=== PATIENT | male | born 1955 | race African-American/Black ===

== ENCOUNTER 2019-07-31 06:00 | Outpatient (RCR) | payer OTHER, SELFPAY | END 2019-08-30 00:01 | LOC: MPT 06:00 | PROVIDERS: Family Provider Emergency Medicine Emergency Medical Services; Visit Provider Specialist | DX: Z47.1 Aftercare following joint replacement surgery (principal); Z96.651 Presence of right artificial knee joint | CPT/HCPCS: 97110 ×2; G0283 ×2 ==

== ENCOUNTER 2019-09-13 20:00 | Outpatient (CLI) | payer MEDICARE, SELFPAY | END 2019-09-13 20:01 | disposition home or self-care (01) | LOC: SLEEP 09-14 10:01 | PROVIDERS: Family Provider Emergency Medicine Emergency Medical Services; PCP Emergency Medicine Emergency Medical Services; Visit Provider Registered Nurse | DX: G47.33 Obstructive sleep apnea (adult) (pediatric) (principal) | CPT/HCPCS: 95810; 95811 ==

== ENCOUNTER → 2019-09-30 10:50 | Outpatient (BNVA) | payer OTHER, SELFPAY | PROVIDERS: Family Provider Emergency Medicine Emergency Medical Services; PCP Emergency Medicine Emergency Medical Services; Visit Provider Anesthesiology | DX: M54.5 Low back pain (principal); Z79.891 Long term (current) use of opiate analgesic | CPT/HCPCS: 99213; 99214 ==

== ENCOUNTER → 2019-10-11 15:49 | Outpatient (BNVA) | payer OTHER, SELFPAY | PROVIDERS: Family Provider Emergency Medicine Emergency Medical Services; PCP Emergency Medicine Emergency Medical Services; Visit Provider Urology | DX: N40.0 Benign prostatic hyperplasia without lower urinary tract symptoms (principal); R33.9 Retention of urine, unspecified | CPT/HCPCS: 81001; 84153 ==

== ENCOUNTER → 2019-10-26 08:16 | Outpatient (BNVA) | payer OTHER, SELFPAY | PROVIDERS: Family Provider Emergency Medicine Emergency Medical Services; PCP Emergency Medicine Emergency Medical Services; Visit Provider Anesthesiology | DX: G89.29 Other chronic pain (principal); M54.41 Lumbago with sciatica, right side; M47.816 Spondylosis without myelopathy or radiculopathy, lumbar region; Z79.891 Long term (current) use of opiate analgesic | CPT/HCPCS: 99213; 99214 ==

== ENCOUNTER → 2019-11-08 12:17 | Outpatient (BNVA) | payer OTHER, SELFPAY | PROVIDERS: Family Provider Emergency Medicine Emergency Medical Services; PCP Emergency Medicine Emergency Medical Services; Visit Provider Anesthesiology Pain Medicine | DX: G89.29 Other chronic pain (principal); M47.816 Spondylosis without myelopathy or radiculopathy, lumbar region | CPT/HCPCS: 64493; 64494; 64495; 64520; J2001; J3490 ==

== ENCOUNTER 2019-11-15 10:58 | Emergency (ER) | payer OTHER, SELFPAY ==
[2019-11-15 10:59] VITALS: BMI 26.2
--- NOTE | 2019-11-15 11:03 | ED_ITS ---
Entered by Nupur Michel, acting as scribe for Sage Martinez MD, [facility] [place] HPI - Psych General: Chief Complaint: Psychiatric Symptoms Stated Complaint: SI, ABD PAIN Time Seen by Provider: 11/15/19 11:00 Source: patient Mode of arrival: ambulatory Limitations: no limitations History of Present Illness: HPI Narrative: 64 yo Male presents to ED with complaint of suicidal ideation and depression. Pt states that for the last 2 weeks he has been feeling down and out and depressed. Pt states that he has a history of depression and takes medication for it. Pt denies any recent life stressors or anything that might have started this episode. Pt states he has considered suicide and planned to put one in the head . Pt states that he hasn't been able to eat for 2 weeks because he has not appetite. Pt states that he doesn't have any homicidal ideation. Pt states that he has a history of drug use but hasn't used anything in about 5 years. Pt states he has also been having abdominal pains. MD complaint: suicidal ideation and feels depressed Onset (ago): week(s) (2) Duration: constant History of same: Yes Relieving factors: none Exacerbating factors: none Associated psychiatric symptoms: depression and suicidal ideation Associated symptoms: Reports depression and suicidal ideation; Deny homicidal ideation Treatments prior to arrival: none If self harm: admits thoughts of self harm and has plan Review of Systems General: Reports: 10 or more systems reviewed and unremarkable except in HPI and below Const: Denies: fever, chills or body aches Eyes: Denies: change in vision or blurry vision ENMT: Denies: throat pain, enlarged tonsils, painful swallowing, hoarseness, mouth pain or swelling of lips/tongue Card: Denies: chest pain, palpitations, irregular heart rhythm, edema or swelling of feet/ankles Resp: Denies: shortness of breath, productive cough or non-productive cough GI: Reports: abdominal pain; Denies: nausea or vomiting : Denies: flank pain, painful urination, urinary frequency, urinary urgency or urinary hesitancy Musc: Denies: neck pain, back pain or extremity swelling Skin/Breast: Denies: rash, itching or redness Neuro: Denies: headache, numbness in extremities or weakness in extremities Psych: Reports: depression and suicidal ideation; Denies: homicidal ideation Endo: Denies: excessive urination, excessive thirst or tired all the time PFSH ED PFSH: Medical History Chronic bilateral low back pain with right-sided sciatica Encounter for long-term opiate analgesic use Generalized anxiety disorder Lumbar spondylosis Major depressive disorder, recurrent severe without psychotic features OSBALDO (obstructive sleep apnea) Post-traumatic stress disorder, chronic Urinary retention Surgical History Hx of eye surgery hole in retina S/P total knee arthroplasty RIGHT Family History Mother , at age 88 No problems noted. Father , at age 97 lung cancer No problems noted. Other Cancer Diabetes Hypertension Social History (Updated 10/26/19 @ 08:56 by Barbara Guallpa LPN) Smoking and tobacco status: never smoked Second hand smoke exposure: No Alcohol intake: never Marital status: Current occupational status: employed History of recent travel: No Physical Exam Const: COMMON NORMALS: no apparent distress, average body habitus, oriented x3, no limitations, healthy appearing, alert and well nourished HENMT: COMMON NORMALS: normocephalic, head/scalp atraumatic and moist oral mucous membranes HEAD & SCALP: normocephalic and atraumatic Eye: COMMON NORMALS: PERRL, EOMs intact bilaterally, conjunctivae normal and no scleral icterus CONJUNCTIVA: Yes conjunctivae normal PUPIL: Yes PERRL Neck/C-Spine: COMMON NORMALS: full ROM, supple, no meningeal signs, no JVD and no carotid bruits Chest: COMMONS NORMALS: inspection of chest normal and palpation of chest normal Resp: COMMON NORMALS: normal respiratory effort, no retractions, no use of accessory muscles, clear to auscultation bilaterally and percussion normal AUSCULTATION: clear to auscultation bilaterally PERCUSSION: percussion normal Cardio: COMMON NORMALS: no JVD, regular rate, regular rhythm, S1 normal heart sound, S2 normal heart sound, no gallops, no clicks, no murmurs, no rub and peripheral pulses 2+ throughout RATE: regular rate RHYTHM: regular rhythm HEART SOUNDS: S1 normal and S2 normal PERIPHERAL PULSES: pulses 2+ throughout GI: COMMON NORMALS: normal to inspection, nondistended, normoactive bowel sounds, soft to palpation, non-tender, no hepatosplenomegaly, no masses and no bruits PALPATION: Yes soft and Yes no hepatosplenomegaly : COMMON NORMALS: Yes no CVA tenderness BLADDER/KIDNEY EXAM: Yes no CVA tenderness Back/Pelvis: COMMON NORMALS: no CVA tenderness Extremity: COMMON NORMALS: normal to inspection, full ROM, normal capillary refill, no calf tenderness and no pedal edema Neuro: COMMON NORMALS: oriented x3 SENSORIUM/ORIENTATION: Yes alert MENINGEAL SIGNS: Yes no meningeal signs Skin: COMMON NORMALS: no rashes or lesions noted, no wounds, skin turgor normal, no jaundice, no petechiae and no mottling GENERAL SKIN EXAM: no rashes or lesions noted and turgor normal MDM - Psych MDM Narrative: Medical decision making narrative: 64-year-old gentleman who is a and presents to the emergency department with suicidal ideation. The patient was medically cleared, however 3 in the hospital declined the patient. The patient was however accepted at [facility] in [place] and he is being transferred to the facility for further evaluation and management. Medical Records: Attestation: I reviewed the patient's medical records. Lab Data: Attestation: I reviewed the patient's lab results. Labs: Lab Results 11/15/19 11/15/19 11/15/19 Range/Units 11:08 11:08 11:24 WBC 5.1 (4.0-10.0) 10^3/ uL RBC 4.82 (4.1-5.3) 10^6/u L Hgb 12.9 (11.7-16.6) g/dL Hct 40.9 L (42.0-52.0) % MCV 84.9 (80-94) fL MCH 26.8 L (28.0-34.0) pg MCHC 31.5 (30.0-36.0) g/dL RDW 12.9 (12.1-15.1) % Plt Count 362 (130-400) 10^3/c mm MPV 10.4 (7.4-10.4) fL Neut % (Auto) 60.8 % Lymph % (Auto) 31.1 % [place] % (Auto) 6.9 % Eos % (Auto) 0.6 % Baso % (Auto) 0.4 % Neut # (Auto) 3.1 (1.8-7.7) 10^3/u L Lymph # (Auto) 1.6 (0.8-4.8) 10^3/u L [place] # (Auto) 0.4 (0.2-0.9) 10^3/u L Eos # (Auto) 0.0 (0.0-0.8) 10^3/u L Baso # (Auto) 0.0 (0.0-0.1) 10^3/u L Nucleated RBC % (a uto) 0 % Nucleated RBCs # 0.0 /100WBC Sodium (136-145) mmol/L Potassium (3.5-5.1) mmol/L Chloride (98-107) mmol/L Carbon Dioxide (22-29) mmol/L Anion Gap (5-19) BUN (8-23) mg/dL Creatinine (0.7-1.2) mg/dL GFR Calculation (90-130) mL/min Glucose (65-115) mg/dL Calculated Osmolal ity (285-295) mOsm/k g Calcium (8.5-10.5) mg/dL Total Bilirubin (0.15-1.2) mg/dL AST (0-40) U/L ALT (0-41) U/L Alkaline Phosphata se (40-130) IU/L Total Protein (6.6-8.7) g/dL Albumin (3.5-5.2) g/dL Globulin (1.3-4.6) g/dL TSH (0.27-4.20) uIU/ mL Urine Color Yellow (Yellow) Urine Appearance Clear (CLEAR) Urine pH 5 (5-7) Ur Specific Gravit y 1.015 (1.005-1.030) Urine Protein Neg (Negative) Urine Glucose (UA) Norm (Normal) Urine Ketones Negative (Negative) Urine Blood Neg (Negative) Urine Nitrate Negative (Negative) Urine Bilirubin Neg (NEGATIVE) Urine Urobilinogen Norm (Negative) mg/dL Ur Leukocyte Jacklyn ase Negative (Negative) Salicylates (3-10) mg/dL Urine Opiates Scre en Negative (Negative) ng/mL Acetaminophen (10-30) ug/mL Ur Barbiturates Sc reen Negative (Negative) ng/mL Ur Phencyclidine S crn Negative (Negative) ng/mL Ur Amphetamines Sc reen Negative (Negative) ng/mL U Benzodiazepines Scrn Negative (Negative) ng/mL Urine Cocaine Scre en Negative (Negative) ng/mL U Marijuana (THC) Screen Negative (Negative) ng/mL Ethyl Alcohol (0-10) mg/dL 11/15/19 Range/Units 11:24 WBC (4.0-10.0) 10^3/ uL RBC (4.1-5.3) 10^6/u L Hgb (11.7-16.6) g/dL Hct (42.0-52.0) % MCV (80-94) fL MCH (28.0-34.0) pg MCHC (30.0-36.0) g/dL RDW (12.1-15.1) % Plt Count (130-400) 10^3/c mm MPV (7.4-10.4) fL Neut % (Auto) % Lymph % (Auto) % [place] % (Auto) % Eos % (Auto) % Baso % (Auto) % Neut # (Auto) (1.8-7.7) 10^3/u L Lymph # (Auto) (0.8-4.8) 10^3/u L [place] # (Auto) (0.2-0.9) 10^3/u L Eos # (Auto) (0.0-0.8) 10^3/u L Baso # (Auto) (0.0-0.1) 10^3/u L Nucleated RBC % (a uto) % Nucleated RBCs # /100WBC Sodium 140 (136-145) mmol/L Potassium 3.4 L (3.5-5.1) mmol/L Chloride 101 (98-107) mmol/L Carbon Dioxide 29 (22-29) mmol/L Anion Gap 13.4 (5-19) BUN 17 (8-23) mg/dL Creatinine 1.2 (0.7-1.2) mg/dL GFR Calculation 60.6 L (90-130) mL/min Glucose 107 (65-115) mg/dL Calculated Osmolal ity 287 (285-295) mOsm/k g Calcium 10.2 (8.5-10.5) mg/dL Total Bilirubin 0.3 (0.15-1.2) mg/dL AST 24 (0-40) U/L ALT 19 (0-41) U/L Alkaline Phosphata se 66 (40-130) IU/L Total Protein 8.2 (6.6-8.7) g/dL Albumin 4.5 (3.5-5.2) g/dL Globulin 3.7 (1.3-4.6) g/dL TSH 1.01 (0.27-4.20) uIU/ mL Urine Color (Yellow) Urine Appearance (CLEAR) Urine pH (5-7) Ur Specific Gravit y (1.005-1.030) Urine Protein (Negative) Urine Glucose (UA) (Normal) Urine Ketones (Negative) Urine Blood (Negative) Urine Nitrate (Negative) Urine Bilirubin (NEGATIVE) Urine Urobilinogen (Negative) mg/dL Ur Leukocyte Jacklyn ase (Negative) Salicylates < 0.3 L (3-10) mg/dL Urine Opiates Scre en (Negative) ng/mL Acetaminophen < 5.0 L (10-30) ug/mL Ur Barbiturates Sc reen (Negative) ng/mL Ur Phencyclidine S crn (Negative) ng/mL Ur Amphetamines Sc reen (Negative) ng/mL U Benzodiazepines Scrn (Negative) ng/mL Urine Cocaine Scre en (Negative) ng/mL U Marijuana (THC) Screen (Negative) ng/mL Ethyl Alcohol < 10 (0-10) mg/dL Imaging Data^: CT Abd/Pel: Radiologist's impression: [place] [address] CT Scan Report Signed Patient: Brant Segundo #: [id number] : 4Acct#:[id number] Age/Sex: 64 / MADM Date: 11/15/19 Loc: ERRoom/Bed: Attending Dr: Ordering Provider/Ordering MD: Sage Martinez MD, [facility] [place] Date of Service: 11/15/19 Procedure(s): CT abdomen pelvis w con* [id number] Accession Number(s): [id number] Report Number: [id number] WS: [id number] CT scan of the abdomen and pelvis with IV contrast. Additional two-dimensional coronal and sagittal reconstruction was performed. 11/15/2019 Clinical Data: abdominal pain, nausea Comparison: CT abdomen and pelvis, 11/16/2018. DLP: 1029.[address] scans at [facility] use at least one of these dose optimization techniques: automated exposure control; mA and/or kV adjustment per patient size (includes targeted exams where dose is matched to clinical indication); or iterative reconstruction. Findings: The lower lungs show no nodules, masses or effusions. The liver, gallbladder, spleen, adrenal glands and pancreas are normal. The kidneys show equal bilateral contrast excretion with bilateral simple cysts, the largest of which on the right is 2.3 cm. No renal mass, hydronephrosis or calculi are seen. The abdominal aorta is normal in size with minimal calcification in the wall. No appendicitis or diverticulitis is seen. The stomach, small bowel and colon show no abnormalities. The bladder is unremarkable. The prostate is enlarged. No inguinal hernia is seen. The lumbar spine shows a levoscoliosis with degenerative disc disease at L2-L3. CT/CT abdomen pelvis w con* [id number] Impression: 1. Negative for acute intra-abdominal or pelvic abnormalities. 2. Bilateral renal cysts. Dictated By:Radha Guerrero MD Signed By:Radha Guerrero MDSigned Date/Time:11/15/19 1312 DD/ 1246 CXR: Radiologist's impression: [address] [address] XRay Report Signed Patient: Brant Segundo #: [id number] : 4Acct#:[id number] Age/Sex: 64 / MADM Date: 11/15/19 Loc: ERRoom/Bed: Attending Dr: Ordering Provider/Ordering MD: Sage Martinez MD, [facility] [place] Date of Service: 11/15/19 Procedure(s): XR chest 2V* 84799 Accession Number(s): [id number] Report Number: [id number] WS: [id number] XR chest 2V* 22001 REASON FOR EXAM: medical clearance FINDINGS: Hyper aerated lungs with decreased vascularity in flattenings of the hemidiaphragms. The heart was small. There is no pneumonia, pleural effusion, pulmonary edema. The hilum and apices normal. No osseous abnormalities. XR/XR chest 2V* 40168 IMPRESSION: Chronic obstructive pulmonary disease. Dictated By:Brian Nogueira DO Signed By:Brian Nogueira DOSigned Date/Time:11/15/19 1628 DD/ 1628 EKG Data^: EKG 1: Computer generated interpretation: [address] [address] Electrocardiograph Report Signed Patient: Brant Segundo #: [id number] : 1955cct#:[id number] Age/Sex: 64 / MADM Date: 11/15/19 Loc: [facility] [place]/Bed: Attending Dr: Ordering Provider/Ordering MD: Sage Martinez MD, [facility] [place] Date of Service: 11/15/19 Procedure(s): ECG 12 lead EKG Accession Number(s): [id number] Report Number: [id number] Measurements Intervals [place] Rate: 55 P: 61 [place]: 150 QRS: 71 QRSD: 100 T: 67 QT: 437 QTc: 421 SINUS BRADYCARDIA Compared to ECG 01/05/2019 09:19:08 Sinus rhythm no longer present Left ventricular hypertrophy no longer present Electronically Signed On 11-15-2019 12:44:18 CDT by Unique Nelson M.D. [id number] [id number] Dictated By:Unique Nelson MD Signed By:Unique Nelson MDSigned Date/Time:11/15/19 1245 DD/ 1204 Discharge Plan Discharge Patient Disposition: Xfer Psychiatric Hosp Clinical Impression: Suicidal ideation Condition: Stable Discharge Orders: Transfer Out of Facility (Order); Ordered 11/15/19 Ordered By: Sage Martinez Referrals: Gideon Bae DO [Primary Care Provider] - Coding Level of Care Code ED Circle Saw Operator for Chg Fwd Exam Comprehensive The documentation recorded by the Marilu palomino Carmen, accurately reflects the service I personally performed and the decisions made by me, Sage Martinez MD, [facility] [facility] Nov 15, 2019 10:58
[2019-11-15 11:04] VITALS: BP 149/83; PULSE 63; RESP 16; TEMP 36.6; O2SAT 95
--- NOTE | 2019-11-15 11:27 | CT_ITS ---
WS: [id number] CT scan of the abdomen and pelvis with IV contrast. Additional two-dimensional coronal and sagittal r econstruction was performed. 11/15/2019 Clinical Data: abdominal pain, nausea Comparison: CT abdomen and pelvis, 11/16/2018. DLP: 1029.[address] scans at [facility] use at least one of these dose optimization techniques: automat ed exposure control; mA and/or kV adjustment per patient size (includes targeted exams where dose is matched to clinical indication); or iterative reconstruction. Findings: The lower lungs show no nodules, masses or effusions. The liver, gallbladder, spleen, adrenal glands and pancreas are normal. The kidneys show equal bilateral contrast excretion with bilateral simple cysts, the largest of which on the right is 2.3 cm. No renal mass, hydronephrosis or calculi are seen. The abdominal aorta is no rmal in size with minimal calcification in the wall. No appendicitis or diverticulitis is seen. The stomach, small bowel and colon show no abnormalities. The bladder is unremarkable. The prostate is enlarged. No inguinal hernia is seen. The lumbar spine shows a levoscoliosis with degenerative disc disease at L2-L3. CT/CT abdomen pelvis w con* [id number] Impression: 1. Negative for acute intra-abdominal or pelvic abnormalities. 2. Bilateral renal cysts.
--- NOTE | 2019-11-15 11:27 | ECG_ITS ---
Measurements Intervals [place] Rate: 55 P: 61 [place]: 150 QRS: 71 QRSD: 100 T: 67 QT: 437 QTc: 421 SINUS BRADYCARDIA Compared to ECG 01/05/2019 09:19:08 Sinus rhythm no longer present Left ventricular hypertrophy no longer present Electronically Signed On 11-15-2019 12:44:18 CDT by Unique Nelson M.D. [id number]
[2019-11-15 11:36] LABS: Add Urine Microscopic? NO
[2019-11-15 11:46] LABS: Basophils % 0.4 %; Eosinophils % 0.6 %; Hematocrit 40.9 % (42.0-52.0); Hemoglobin 12.9 g/dL (11.7-16.6); Lymphocytes # 1.6 10^3/uL (0.8-4.8); Lymphocytes % 31.1 %; Mean Corpuscular HGB Conc 31.5 g/dL (30.0-36.0); Mean Corpuscular Hemoglobin 26.8 pg (28.0-34.0); Mean Corpuscular Volume 84.9 fL (80-94); Mean Platelet Volume 10.4 fL (7.4-10.4); Monocytes # 0.4 10^3/uL (0.2-0.9); Monocytes % 6.9 %; Neutrophils # 3.1 10^3/uL (1.8-7.7); Neutrophils % 60.8 %; Nucleated Red Blood Cells % 0 %; Platelet Count 362 10^3/cmm (130-400); Red Blood Count 4.82 10^6/uL (4.1-5.3); Red Cell Distribution Width 12.9 % (12.1-15.1); White Blood Count 5.1 10^3/uL (4.0-10.0)
[2019-11-15] MEDS: sodium chloride 0.9% 1,000 ML 999 ML IV (11:48)
[2019-11-15 12:00] LABS: Bilirubin Urine Neg (NEGATIVE); Blood Urine Neg (Negative); Glucose Urine UA Norm (Normal); Ketones Urine Negative (Negative); Leukocyte Esterase Urine Negative (Negative); Nitrate Urine Negative (Negative); Protein Urine Neg (Negative); Specific Gravity, Urine 1.015 (1.005-1.030); Urine Appearance Clear (CLEAR); Urine Color Yellow (Yellow); Urobilinogen Urine Norm (Negative); pH Urine 5 (5-7)
[2019-11-15 12:02] LABS: Alanine Aminotransferase 19 U/L (0-41); Albumin Level 4.5 g/dL (3.5-5.2); Alkaline Phosphatase 66 IU/L (40-130); Anion Gap 13.4 (5-19); Aspartate Amino Transferase 24 U/L (0-40); Blood Urea Nitrogen 17 mg/dL (8-23); Calcium 10.2 mg/dL (8.5-10.5); Carbon Dioxide 29 mmol/L (22-29); Chloride 101 mmol/L (98-107); Globulin 3.7 g/dL (1.3-4.6); Glomerular Filtration Rate 60.6 mL/min (90-130); Glucose 107 mg/dL (65-115); Osmolality Calculated 287 mOsm/kg (285-295); Potassium 3.4 mmol/L (3.5-5.1); Sodium 140 mmol/L (136-145); Thyroid Stimulating Hormone 1.01 uIU/mL (0.27-4.20); Total Bilirubin 0.3 mg/dL (0.15-1.2); Total Protein 8.2 g/dL (6.6-8.7)
[2019-11-15 12:09] LABS: Amphetamines Screen Urine Negative (Negative); Barbiturates Screen Urine Negative (Negative); Benzodiazepines Screen Urine Negative (Negative); Cocaine Screen Urine Negative (Negative); Opiate Screen Urine Negative (Negative); PCP Screen Urine Negative (Negative); THC Screen Urine Negative (Negative)
[2019-11-15 12:19] LABS: Acetaminophen < 5.0 ug/mL (10-30); Alcohol Level < 10 mg/dL (0-10); Salicylate < 0.3 mg/dL (3-10)
[2019-11-15] MEDS: LORazepam 2 mg Tablet PO (12:44)
--- NOTE | 2019-11-15 15:44 | XR_ITS ---
WS: [id number] XR chest 2V* 07740 REASON FOR EXAM: medical clearance FINDINGS: Hyper aerated lungs with decreased vascularity in flattenings of the hemidiaphragms. The heart was small. There is no pneumonia, pleural effusion, pulmonary edema. The hilum and apices normal. No osseous abnormalities. XR/XR chest 2V* 94061 IMPRESSION: Chronic obstructive pulmonary disease.
--- NOTE | 2019-11-15 16:40 | PC.NURSE ---
Contacted the following [place] facilities: [facility], [facility], [facility]. None of these facilities currently have beds available.
[2019-11-15 19:37] VITALS: BP 172/88; PULSE 76; RESP 16; O2SAT 96
[2019-11-15] MEDS: prazosin 5 mg Capsule 10 MG PO (20:55)
[2019-11-15 20:56] VITALS: BP 175/87
[2019-11-15] MEDS: cloNIDine 0.1 mg Tablet PO (20:56)
[2019-11-15 23:35] VITALS: BP 168/86; PULSE 60; RESP 14; O2SAT 98
--- NOTE | 2019-11-15 23:42 | PC.NURSE ---
RN reviewed and agrees with assessment
== END 2019-11-15 23:35 ==
PROVIDERS: Emergency Provider Family Medicine; Family Provider Emergency Medicine Emergency Medical Services; PCP Emergency Medicine Emergency Medical Services
DX: R45.851 Suicidal ideations (principal); F32.9 Major depressive disorder, single episode, unspecified; F43.10 Post-traumatic stress disorder, unspecified; G47.33 Obstructive sleep apnea (adult) (pediatric); N28.1 Cyst of kidney, acquired; R00.1 Bradycardia, unspecified
CPT/HCPCS: 12345; 36415; 71046; 74177; 80053; 80306; 80307; 81003; 84443; 85025; 93005; 96360; 99284; 99285; A9270; J7030

== ENCOUNTER 2019-12-27 08:28 | Emergency (ER) | payer OTHER, SELFPAY ==
[2019-12-27 08:34] VITALS: BMI 26.2
[2019-12-27 08:37] VITALS: BP 137/84; PULSE 70; RESP 16; TEMP 36.9; O2SAT 96
--- NOTE | 2019-12-27 08:59 | XR_ITS ---
WS: [id number] RIGHT FOOT: 2 VIEW(S) TECHNIQUE: AP and lateral. HISTORY: rule out bone infection/FB COMPARISON: None available. No acute fracture or dislocation. Normal tarsal/metatarsal alignment. No ulceration is identified radiographically. Small calcaneal spur. XR/XR foot RT 2V 82951 IMPRESSION: No soft tissue ulceration or osteomyelitis identified radiographically.
--- NOTE | 2019-12-27 08:59 | ED_ITS ---
HPI - Extremity Problem General: Chief complaint: Extremity Problem,Nontraumatic Stated complaint: SORE ON RIGHT FOOT Time Seen by Provider: 12/27/19 08:32 Source: patient Mode of arrival: ambulatory Limitations: no limitations History of Present Illness: HPI Narrative: soreness on right foot x 6 mos Complaint: extremity pain Severity scale (1-10): 4 Quality: aching Radiation: none Associated symptoms: Reports no associated symptoms Review of Systems General: Reports: 10 or more systems reviewed and unremarkable except in HPI and below PFSH ED PFSH: Medical History Chronic bilateral low back pain with right-sided sciatica Encounter for long-term opiate analgesic use Generalized anxiety disorder Lumbar spondylosis Major depressive disorder, recurrent severe without psychotic features OSBALDO (obstructive sleep apnea) Post-traumatic stress disorder, chronic Urinary retention Surgical History Hx of eye surgery hole in retina S/P total knee arthroplasty RIGHT Family History Mother , at age 88 No problems noted. Father , at age 97 lung cancer No problems noted. Other Cancer Diabetes Hypertension Social History Smoking and tobacco status: never smoked Second hand smoke exposure: No Alcohol intake: never Marital status: Current occupational status: employed History of recent travel: No Physical Exam Const: COMMON NORMALS: no apparent distress, oriented x3, no limitations and alert GENERAL APPEARANCE: cooperative and comfortable ORIENTATION/CONSCIOUSNESS: Yes awake, Yes oriented to person, Yes oriented to place and Yes oriented to time HENMT: COMMON NORMALS: normocephalic, head/scalp atraumatic, external ears normal, EAC's normal, TM's normal bilaterally and external nose normal HEAD & SCALP: normal to inspection, normocephalic and atraumatic FACE & SINUS: normal facial exam, sinuses nontender and face symmetric NOSE: external nose normal, nares normal and no nasal discharge EXTERNAL EAR: Yes external ears normal EXTERNAL AUDITORY CANAL: EAC's normal TYMPANIC MEMBRANE: TM's normal bilaterally MOUTH: oral and palatal mucosa normal, lip normal and tongue normal THROAT: posterior oropharynx normal, tonsils normal and uvula midline Eye: COMMON NORMALS: PERRL, EOMs intact bilaterally and conjunctivae normal GENERAL EYE: normal appearance of both eyes and normal light reflex EYELID: eyelids normal CONJUNCTIVA: Yes conjunctivae normal PUPIL: Yes PERRL EOM: Yes EOM abnormal DIRECT OPHTHALMOSCOPY: Yes normal light reflex Neck/C-Spine: COMMON NORMALS: full ROM, no lymphadenopathy, supple, no meningeal signs, no JVD and thyroid normal GENERAL: Yes normal visual ins pection THYROID: thyroid normal CERVICAL SPINE: Yes cervical ROM normal and Yes normal cervical lordosis Lymph: LYMPHATIC: no lymphadenopathy noted Chest: COMMONS NORMALS: inspection of chest normal and palpation of chest normal Resp: COMMON NORMALS: normal respiratory effort, no retractions and clear to auscultation bilaterally AUSCULTATION: clear to auscultation bilaterally Cardio: COMMON NORMALS: no JVD, regular rate, regular rhythm, S1 normal heart sound, S2 normal heart sound, no gallops, no clicks, no murmurs, no rub and peripheral pulses 2+ throughout RATE: regular rate RHYTHM: regular rhythm HEART SOUNDS: S1 normal and S2 normal PERIPHERAL PULSES: pulses 2+ throughout GI: COMMON NORMALS: normal to inspection, nondistended, normoactive bowel sounds, soft to palpation, non-tender and no masses PALPATION: Yes soft : COMMON NORMALS: Yes no CVA tenderness BLADDER/KIDNEY EXAM: Yes no CVA tenderness Back/Pelvis: COMMON NORMALS: no CVA tenderness, thoracic and lumbar spine normal to inspection, no thoracic nor lumbar tenderness and thoraco-lumbar ROM normal Extremity: COMMON NORMALS: normal to inspection, full ROM, normal capillary refill, no joint enlargement, no clubbing, cyanosis or edema, no calf tenderness and no pedal edema GENERAL: Yes normal exam except as noted RIGHT LOWER EXTREMITY: Yes foot & digits Right foot and digits: Yes inspection (right plantar surface, medial aspect- small pin size FB possible), Yes palpation (tenderness and callus formation ) and Yes other Neuro: COMMON NORMALS: oriented x3, moves all extremities, no focal motor deficits, no sensory deficits noted and gait normal SENSORIUM/ORIENTATION: Yes alert, Yes oriented to person, Yes oriented to place and Yes oriented to time MENINGEAL SIGNS: Yes no meningeal signs Psych: COMMON NORMALS: mental status grossly normal, thought process normal, cooperative, affect normal, speech normal and activity/motor behavior normal SPEECH: Yes normal speech THOUGHT PROCESS: normal thought process Skin: COMMON NORMALS: no rashes or lesions noted, no wounds and skin turgor normal GENERAL SKIN EXAM: no rashes or lesions noted and turgor normal Course ED course: Awaiting xrays to rule out bone infection and FB; no fevers and pt is not toxic appearing. Reevaluation(s): Reevaluation #1: Follow up with Podiatry. No acute bone infection and no FB noted per XRAY. Time: 09:55 Vital Signs: Vital signs: Vital Signs Temperature 98.5 F 12/27/19 08:37 Pulse Rate 70 12/27/19 08:37 Respiratory Rate 16 12/27/19 08:37 Blood Pressure 137/84 12/27/19 08:37 Pulse Oximetry 96 12/27/19 08:37 MDM - Extremity (Nontraumatic) Imaging Data^: Other Xray: Radiologist's impression: [place] [address] XRay Report Signed Patient: Brant Segundo Unit #: [id number] : 1955 Age/Sex: 64 / M ADM Date: 12/27/19 Loc: ER Room/Bed: Attending Dr: Ordering Provider/Ordering MD: Mara Nichole NP Date of Service: 12/27/19 Procedure(s): XR foot RT 2V 02649 Accession Number(s): [id number] Report Number: [id number] WS: [id number] RIGHT FOOT: 2 VIEW(S) TECHNIQUE: AP and lateral. HISTORY: rule out bone infection/FB COMPARISON: None available. No acute fracture or dislocation. Normal tarsal/metatarsal alignment. No ulceration is identified radiographically. Small calcaneal spur. XR/XR foot RT 2V [id number] IMPRESSION: No soft tissue ulceration or osteomyelitis identified radiographically. Dictated By: Eloisa Day DO Signed By: Eloisa Day DO Signed Date/Time: 12/27/19 0924 Discharge Plan Discharge Patient Disposition: Home, Self-Care Clinical Impression: Chronic foot pain Condition: Stable Prescriptions: New tramadol 50 mg tablet 50 mg PO Q8H Qty: 10 RF: 0 No Action clonidine HCl 0.1 mg tablet 0.1 mg PO BID RF: 0 tamsulosin 0.4 mg capsule 0.8 mg PO DAILY RF: 0 diltiazem HCl 300 mg tablet extended release 24 hr 300 mg PO QAM RF: 0 methocarbamol 750 mg tablet 750 mg PO QID PRN (Reason: Spasms) RF: 0 triamterene-hydrochlorothiazid 75-50 mg tablet 1 tab PO QAM RF: 0 aspirin 325 mg tablet 325 mg PO DAILY RF: 0 aripiprazole [Abilify] 5 mg tablet 10 mg PO DAILY Qty: 60 RF: 2 venlafaxine 75 mg capsule,extended release 24hr 75 mg PO DAILY RF: 0 acetaminophen 500 mg Tablet 1,000 mg PO QID PRN (Reason: Pain) RF: 0 ferrous sulfate 325 mg (65 mg iron) Tablet 325 mg PO DAILY RF: 0 pravastatin 20 mg Tablet 10 mg PO QPM RF: 0 finasteride 5 mg Tablet 5 mg PO DAILY RF: 0 tramadol 50 mg tablet See Rx Instructions .ROUTE .COMPLEX PRN (Reason: pain) RF: 0 prazosin 5 mg capsule 10 mg PO BEDTIME RF: 0 duloxetine [Cymbalta] 30 mg capsule,delayed release(DR/EC) 30 mg PO DAILY RF: 0 duloxetine [Cymbalta] 60 mg capsule,delayed release(DR/EC) 60 mg PO QAM RF: 0 Multiple Vitamins Tablet 1 tab PO DAILY RF: 0 Referrals: Gideon Bae DO [Primary Care Provider] - Discharge Diet: Usual diet Discharge Activity: Increase activity as tolerated Activity Restrictions/Additional Instructions: Follow up with [facility] for further evaluation. Coding Level of Care Code ED Life Skills Coordinator for Jeanna Fwd Exam Comprehensive
[2019-12-27 10:34] VITALS: BP 149/89; PULSE 84; RESP 16; O2SAT 95
--- NOTE | 2019-12-28 10:00 | DCPLANNER ---
Addendum entered by Zee Posey 12/28/19 10:40: Patient has [facility], watch caser called [facility]. phlebotomy manager faxed patients records to [facility] with the [facility]. Original Note: phlebotomy manager had message to schedule a follow up appointment for patient with ortho. phlebotomy manager called the ortho clinic, spoke with Delia, gave clinic patients information. phlebotomy manager was told that patients information would be printed and reviewed. Clinic will call watch caser and patient with appointment information.
--- NOTE | 2019-12-29 15:21 | DCPLANNER ---
Patient has a follow up appointment scheduled for Thursday, January 16, 2020 at 8:[address] Clemens. Clinic will call patient with appointment information.
--- NOTE | 2020-01-18 15:33 | DCPLANNER ---
Patient attended appointment scheduled for 01.16.20 with ortho.
== END 2019-12-27 10:34 | disposition home or self-care (01) ==
PROVIDERS: Emergency Provider Nurse Practitioner Family; Family Provider Emergency Medicine Emergency Medical Services; PCP Emergency Medicine Emergency Medical Services
DX: G89.29 Other chronic pain (principal); M79.671 Pain in right foot; Z79.82 Long term (current) use of aspirin
CPT/HCPCS: 12345; 73620; 99282

== ENCOUNTER → 2020-01-06 08:57 | Outpatient (BNVA) | payer OTHER, SELFPAY | PROVIDERS: Family Provider Emergency Medicine Emergency Medical Services; PCP Emergency Medicine Emergency Medical Services; Visit Provider Anesthesiology | DX: G89.29 Other chronic pain (principal); M54.41 Lumbago with sciatica, right side; M47.816 Spondylosis without myelopathy or radiculopathy, lumbar region; Z79.891 Long term (current) use of opiate analgesic | CPT/HCPCS: 99213; 99214 ==

== ENCOUNTER 2020-01-17 09:39 | Outpatient (CLI) | payer OTHER, SELFPAY ==
--- NOTE | 2020-01-17 09:44 | XR_ITS ---
WS: [id number] LATERAL LUMBAR SPINE: 3 view. Lateral radiographs are performed in upright neutral, flexion and extension to the patient's toleranc e. HISTORY: Low back pain COMPARISON: None available. Advanced degenerative changes in the lumbar spine. Multilevel degenerative disc disease most severe a t L2-3. L4 anterolisthesis by 7 mm on neutral imaging. Increases to 9.8 mm on flexion and 6.6 mm on extension . The remaining vertebral bodies remain normally aligned. XR/XR lumbar spine f/e only [id number] IMPRESSION: 1. Grade 1 anterolisthesis of L4 with mild flexion and extension instability. 2. Multilevel moderate degenerative disc disease.
== END 2020-01-17 09:40 | disposition home or self-care (01) ==
PROVIDERS: Family Provider Emergency Medicine Emergency Medical Services; PCP Emergency Medicine Emergency Medical Services; Visit Provider Licensed Practical Nurse
DX: M54.5 Low back pain (principal); M51.36 Other intervertebral disc degeneration, lumbar region; M53.2X6 Spinal instabilities, lumbar region
CPT/HCPCS: 72120

== ENCOUNTER 2020-01-30 07:23 | Day surgery (SDC) | payer OTHER, SELFPAY ==
[2020-01-27 15:40] VITALS: BMI 27.5
[2020-01-30 07:40] VITALS: BP 156/87; PULSE 88; RESP 18; TEMP 36.8; O2SAT 100
[2020-01-30] MEDS: sodium chloride 0.9% 1,000 ML 30 ML IV (07:47)
--- NOTE | 2020-01-30 07:52 | ANES.PREANE2 ---
Pre-Anesthetic Assessment Pre-Anesthetic Assessment: Height/Weight: Height 1.91 m Weight 99.79 kg Temp Pulse Resp BP Pulse Ox 98.3 F 88 18 156/87 100 01/30/20 07:40 01/30/20 07:40 01/30/20 07:40 01/30/20 07:40 01/30/20 07:40 Preop Diagnosis: history of colon polyps Proposed Procedure: Operation Date: 01/30/20 09:10 Proposed Procedures p Colonoscopy(Not Applicable) - Edouard Corea MD Was Beta Elena taken within 24 hours: N/A Last intake: Intake Last Liquid Date 01/28/20 Last Liquid Time 22:00 Last Solid Date 01/28/20 Social: Social History: No alcohol and No tobacco Exam: Pre-Anes Outpt Exam: alert, oriented x 3, clear to auscultation bilaterally and regular rate & rhythm Airway: Submandibular: WNL Cervical ROM: WNL MP: 2 Dentition: False History/ROS: No significant history except as noted Pulmonary: Pulmonary: Sleep apnea CV/HEM: CV/HEM: HTN : Comments: BPH Hepatic: Hepatic: None reported GI: GI: None reported Metabolic: Metabolic: Hyperlipidemia Musc/skel: Musc/skel: Lower Back Pain Neuropsych: Neuropsych: Anxiety and Depression Anesthetic Plan: ASA status: 2 Anesthesia: Anesthesia Evaluation and MAC Risk of > 500 ml blood loss (7ml/kg in children): No Meds/Allergies Current Medications: Current Medications Generic Name Dose Route Start Last Admin Trade Name Freq PRN Reason Stop Dose Admin Sodium Chloride 1,000 mls @ 30 ml s/hr 01/30/20 07:30 01/30/20 07:47 Sodium Chloride 0.9% IV 01/31/20 07:29 30 mls/hr .Q24H FABY Administration PFSH Anesthesia PFSH: Medical History (Updated 01/21/20 @ 16:35 by Jenn Dixon APRN) Chronic bilateral low back pain with right-sided sciatica Encounter for long-term opiate analgesic use Generalized anxiety disorder Intervertebral disc disorder with radiculopathy of lumbosacral region Lumbar spondylosis Major depressive disorder, recurrent severe without psychotic features OSBALDO (obstructive sleep apnea) Post-traumatic stress disorder, chronic Urinary retention Surgical History Hx of eye surgery hole in retina S/P total knee arthroplasty RIGHT Family History Mother , at age 88 Hypertension Father , at age 97 lung cancer No problems noted. Social History (Updated 01/17/20 @ 09:03 by Esther Castro LPN) Smoking and tobacco status: former smoker Second hand smoke exposure: No Alcohol intake: former Substance/Drug Use: never Household members: spouse Marital status: Current occupational status: employed Current occupation: post office History of recent travel: No Data Anesthesia Cardiac Studies: No Data to Display
--- NOTE | 2020-01-30 08:52 | W.PM.OPSFHP ---
Same Day Surgery H&P Indication for Procedure/HPI DATE OF PROCEDURE: January 30, 2020 CHIEF COMPLAINT/INDICATIONFOR SURGICAL PROCEDURE: Personal history of colon polyp PREOP DIAGNOSIS: history of colon polyps PLANNED PROCEDRUE: Operation Date: 01/30/20 09:10 Proposed Procedures p Colonoscopy(Not Applicable) - Edouard Corea MD Medications/Allergies* Home Medications Medication Instructions Recorded Confirmed Type aspirin 325 mg tablet 325 mg PO DAILY tab 09/06/19 01/30/20 History clonidine HCl 0.1 mg tablet 0.1 mg PO BID 09/06/19 01/30/20 History diltiazem HCl 300 mg 300 mg PO QAM tab 09/06/19 01/30/20 History tablet,extended release 24 hr methocarbamol 750 mg tablet 750 mg PO QID PRN tab 09/06/19 01/30/20 History tamsulosin 0.4 mg capsule 0.8 mg PO DAILY cap 09/06/19 01/30/20 History triamterene 75 1 tab PO QAM 09/06/19 01/30/20 History mg-hydrochlorothiazide 50 mg tablet acetaminophen 1,000 mg PO QID PRN 11/15/19 01/27/20 History duloxetine [Cymbalta] 60 mg PO QAM 11/15/19 01/30/20 History ferrous sulfate 325 mg PO DAILY 11/15/19 01/30/20 History finasteride 5 mg PO DAILY 11/15/19 01/30/20 History multivitamin [Multiple Vitamins] 1 tab PO DAILY 11/15/19 01/30/20 History pravastatin 10 mg PO QPM 11/15/19 01/30/20 History prazosin 10 mg PO BEDTIME 11/15/19 01/30/20 History venlafaxine 75 mg PO DAILY 11/15/19 01/30/20 History Allergies/Adverse Reactions Allergy/AdvReac Type Severity Reaction Status Date / Time lisinopril Allergy cough Verified 01/17/20 08:58 Current Medications: Generic Name Dose Route Start Last Admin Trade Name Freq PRN Reason Stop Dose Admin Sodium Chloride 1,000 mls @ 30 mls/hr 01/30/20 07:30 01/30/20 07:47 Sodium Chloride 0.9% IV 01/31/20 07:29 30 mls/hr .Q24H FABY Administration Pertinent History/Comorbid Conditions* Medical History (Updated 01/21/20 @ 16:35 by Jenn Dixon APRN) Chronic bilateral low back pain with right-sided sciatica Encounter for long-term opiate analgesic use Generalized anxiety disorder Intervertebral disc disorder with radiculopathy of lumbosacral region Lumbar spondylosis Major depressive disorder, recurrent severe without psychotic features OSBALDO (obstructive sleep apnea) Post-traumatic stress disorder, chronic Urinary retention Surgical History (Updated 10/26/19 @ 09:28 by Nate Mars MD) Hx of eye surgery hole in retina S/P total knee arthroplasty RIGHT Family History (Updated 01/17/20 @ 09:02 by Esther Castro LPN) Father, at age 97 lung cancer Mother, at age 88 Hypertension Mother Social History Smoking and tobacco status: former smoker Second hand smoke exposure: No Alcohol intake: former Substance/Drug Use: never Household members: spouse Marital status: Current occupational status: employed Current occupation: post office History of recent travel: No Pertinent Exam Findings alert, oriented x 3, clear to auscultation bilaterally, regular rate & rhythm, operative site marked and procedure specific exam findings Recommendations Surgery/Procedure today Coding Level of Care Code Acute Inspector Glass Or Mirror for Jeanna Trujillo
[2020-01-30 09:22] VITALS: BP 109/79; PULSE 74; RESP 16; TEMP 36.9; O2SAT 99
[2020-01-30 09:35] VITALS: BP 139/93; PULSE 73; RESP 18; O2SAT 98
== END 2020-01-30 09:45 | disposition home or self-care (01) ==
PROVIDERS: PCP Emergency Medicine Emergency Medical Services; Visit Provider Internal Medicine
PROC: 0DJD8ZZ Inspection of Lower Intestinal Tract, Via Natural or Artificial Opening Endoscopic (ICD-10-PCS; CPT 45378; principal; 2020-01-30 09:10)
DX: Z86.010 Personal history of colon polyps (principal); I10 Essential (primary) hypertension; N40.0 Benign prostatic hyperplasia without lower urinary tract symptoms; E78.5 Hyperlipidemia, unspecified; G47.30 Sleep apnea, unspecified; G47.33 Obstructive sleep apnea (adult) (pediatric); F33.9 Major depressive disorder, recurrent, unspecified; Z87.891 Personal history of nicotine dependence
CPT/HCPCS: 12345; 45378; J2001; J2704; J7030

== ENCOUNTER → 2020-01-31 12:35 | Outpatient (BNVA) | payer OTHER, SELFPAY | PROVIDERS: Family Provider Emergency Medicine Emergency Medical Services; PCP Emergency Medicine Emergency Medical Services; Visit Provider Anesthesiology Pain Medicine | DX: G89.29 Other chronic pain (principal); M47.816 Spondylosis without myelopathy or radiculopathy, lumbar region; Z79.891 Long term (current) use of opiate analgesic | CPT/HCPCS: 64635; 64636; 77003; J1030; J2001 ==

== ENCOUNTER 2020-02-02 06:00 | Outpatient (RCR) | payer OTHER, SELFPAY | END 2020-02-28 23:59 | disposition home or self-care (01) | LOC: MPT 06:00 | PROVIDERS: PCP Emergency Medicine Emergency Medical Services; Referring Provider Licensed Practical Nurse; Visit Provider Licensed Practical Nurse | DX: M51.17 Intervertebral disc disorders with radiculopathy, lumbosacral region (principal) | CPT/HCPCS: 97110; 97140; 97161; 97530 ==

== ENCOUNTER → 2020-02-14 12:35 | Outpatient (BNVA) | payer OTHER, SELFPAY | PROVIDERS: Family Provider Emergency Medicine Emergency Medical Services; PCP Emergency Medicine Emergency Medical Services; Visit Provider Anesthesiology Pain Medicine | DX: G89.29 Other chronic pain (principal); M47.816 Spondylosis without myelopathy or radiculopathy, lumbar region; Z79.891 Long term (current) use of opiate analgesic | CPT/HCPCS: 64635; 64636; 77003; J1030; J2001 ==

== ENCOUNTER 2020-03-06 08:08 | Outpatient (CLI) | payer OTHER, SELFPAY ==
--- NOTE | 2020-03-06 09:00 | IR_ITS ---
WS: [id number] MYELOGRAM LUMBAR SPINE Fluoroscopic guided lumbar myelogram CLINICAL INFORMATION: Low back pain COMPARISON: None. TECHNIQUE: The procedure, including risks, benefits, and complications, were discussed with the patie nt who agreed to proceed. A timeout was performed to confirm correct patient, procedure, and site. Using sterile technique, the patient was prepped and draped in the usual sterile fashion. After admin istration of local anesthesia using 1% preservative-free lidocaine and using fluoroscopic guidance, a 22-gauge spinal needle was advanced into the subarachnoid space at the L5-S1 level. Subsequently 13 cc of Omnipaque 240 was administered into the thecal sac. The needle was removed and hemostasis was a chieved. Spot fluoroscopic images were obtained. FLUOROSCOPIC TIME: 0.6 minutes. Spot fluoroscopic images demonstrate lumbar scoliosis convex left. 5 nonrib-bearing lumbar vertebral bodies. Disc space narrowing worse at L2-3. Grade 1 anterolisthesis L4 on L5 measuring 7 mm. Mild ins tability at this level. Please see CT myelogram report for additional detail. IR/IR myelogram sp lumbar [id number] IMPRESSION: 1. Uncomplicated lumbar myelogram. 2. Mild instability L4-5 described above. 3. Disc space narrowing worse at L2-3 with vacuum disc phenomenon. 4. Please see CT report for further anatomic detail.
[2020-03-06] MEDS: iohexol 240 mg/mL 50 mL Btl INTRATHECA (09:59)
--- NOTE | 2020-03-06 11:30 | CT_ITS ---
WS: [id number] CT LUMBAR SPINE TECHNIQUE: Contrast-enhanced CT of the lumbar spine with coronal and sagittal reformatted images. CLINICAL INFORMATION: Low back pain COMPARISON: MRI September 21, 2019 DLP: 1916.[address] scans at [facility] use at least one of these dose optimization techniques: automat ed exposure control; mA and/or kV adjustment per patient size (includes targeted exams where dose is matched to clinical indication); or iterative reconstruction. FINDINGS: Lumbar curve convex left. No acute compression fractures. Disc space narrowing worse at L2-3 with vac uum disc phenomenon. Mild vacuum disc phenomenon L3-4. Grade 1 anterolisthesis L4 on L5 appears stabl e. Mild disc bulging throughout the lumbar spine. L1-L2: Mild disc bulging with mild central canal stenosis. Mild left and no significant right foramin al narrowing. Mild facet arthropathy. L2-L3: Mild disc bulging and osteophytic ridging. Right subarticular protrusion impinges the traversi ng right L3 nerve root. Moderate right foraminal narrowing. Left foramen is patent. Mild facet arthro divine. Mild central canal stenosis. L3-L4: Small central disc protrusion. Mild central canal stenosis. Narrowing of the subarticular rece ss bilaterally. Mild bilateral foraminal narrowing. L4-L5: Grade 1 anterolisthesis. Disc osteophyte complex with moderate central canal stenosis and impi ngement on the left greater than right subarticular recess. Impingement traversing left L5 nerve root . Advanced facet arthropathy at this level. Moderate bilateral foraminal narrowing worse in the left. L5-S1: Tiny shallow central disc bulging. Slight effacement of ventral thecal sac. Spinal canal and f oramen are patent. Right renal cyst measuring 1.[address]/CT lumbar spine w con [id number] IMPRESSION: 1. Mild lumbar curve convex left. No acute compression fractures. 2. Grade 1 anterolisthesis L4 on L5 with moderate central canal stenosis and i mpingement traversing left L5 nerve root. 3. Moderate bilateral L4-5 foraminal narrowing worse in the left. 4. Mild central canal stenosis L1-2 and L2-3. 5. Impingement on the right L2-3 subarticular recess with impingement on the t raversing right L3 nerve root. Moderate right L2-3 foraminal narrowing. 6. Tiny central protrusion L3-4 with slight narrowing of the subarticular rece ss bilaterally. Mild central canal stenosis. Mild facet arthropathy with ligame ntum flavum hypertrophy. 7. Advanced facet arthropathy L4-5.
== END 2020-03-06 08:09 | disposition home or self-care (01) ==
PROVIDERS: Family Provider Emergency Medicine Emergency Medical Services; PCP Emergency Medicine Emergency Medical Services; Visit Provider Licensed Practical Nurse
DX: G89.29 Other chronic pain (principal); M51.17 Intervertebral disc disorders with radiculopathy, lumbosacral region; M47.816 Spondylosis without myelopathy or radiculopathy, lumbar region; Z79.891 Long term (current) use of opiate analgesic
CPT/HCPCS: 62304; 72120; 72132; 99214; Q9966

== ENCOUNTER → 2020-03-08 07:50 | Outpatient (BNVA) | payer OTHER, SELFPAY | PROVIDERS: Family Provider Emergency Medicine Emergency Medical Services; Visit Provider Psychiatry & Neurology Psychiatry | DX: F43.12 Post-traumatic stress disorder, chronic (principal); F41.1 Generalized anxiety disorder; F33.2 Major depressive disorder, recurrent severe without psychotic features | CPT/HCPCS: 99214 ==